=== PATIENT | male | born 1990 | race Caucasian/White ===

== ENCOUNTER 2018-06-10 16:54 | Emergency (ER) | payer MEDICAID, OTHER ==
[~2018-06-10] VITALS: Ht 180.3 cm; Wt 65.8 kg
--- NOTE | 2018-06-10 17:12 | NUR ---
LILLY ANAYA AT BEDSIDE FOR MSE.
--- NOTE | 2018-06-10 17:14 | NUR ---
PT A/OX4, PRESENTS TO THE ER C/O "BENZO WITHDRAWAL SYMPTOMS" - SHAKINESS, MILD AGITATION, BODY PAIN, N/V. VSS. PT DOES NOT APPEAR TO BE IN ANY APPARENT DISTRESS AT THIS TIME. PT DENIES C/P, SOB, DIZZINESS, HEADACHE.
[2018-06-10] MEDS ORDERED: LORAZEPAM 0.5 MG TABLET ONE (17:26)
[2018-06-10] MEDS: LORAZEPAM 0.5 MG TABLET PO ONE (17:26)
--- NOTE | 2018-06-10 17:36 | NUR ---
Patient given written and verbal discharge instructions. Patient verbalizes understanding of instructions. Patient is ambulatory with steady gait. Refuses offer of skilled nursing placement. Patient given list of available shelters in surrounding area. ALL BELONGINGS W/ PT. PT SELF-AMBULATED W/O DIFFICULTY.
--- NOTE | 2018-06-10 17:36 | NUR ---
PT PROVIDED W/ DRINKS. PT REFUSED FOOD.
== END 2018-06-10 17:38 | disposition home or self-care (01) ==
LOC: ER 16:54
DX: F15.93 Other stimulant use, unspecified with withdrawal (principal); Z76.0 Encounter for issue of repeat prescription; F17.200 Nicotine dependence, unspecified, uncomplicated; Z88.0 Allergy status to penicillin; Z59.0 Homelessness
CPT/HCPCS: A4663